=== PATIENT | male | born 1950 | race Caucasian/White ===

== ENCOUNTER 2022-11-04 22:54 | Emergency (ER) | payer MEDICARE, OTHER ==
[2022-11-04 23:21] VITALS: BP 158/93
[2022-11-04 23:30] VITALS: BP 147/102
[2022-11-04 23:45] VITALS: BP 146/81
[2022-11-04] MEDS ORDERED: POLYTRIM OU (23:45)
[2022-11-04 23:52] VITALS: BP 147/102
== END 2022-11-04 23:54 | disposition home or self-care (01) ==
LOC: ED 22:54
DX: H18.821 Corneal disorder due to contact lens, right eye (principal); H10.211 Acute toxic conjunctivitis, right eye; T49.5X5A Adverse effect of ophthalmological drugs and preparations, initial encounter